=== PATIENT | male | born 1995 | race Caucasian/White ===

== ENCOUNTER 2017-09-10 13:36 | Emergency (ER) | payer SELFPAY ==
--- NOTE | 2017-09-10 14:12 | ER Document Report ---
ED Psych Disorder / Suicide <LEATHA LIAO - Last Filed: 09/11/17 12:00> - General Mode of Arrival: Ambulatory TRAVEL OUTSIDE OF THE [place] IN LAST 30 DAYS: No <MARKELL DESHPANDE - Last Filed: 09/11/17 12:03> - General Chief Complaint: Psych Problem Stated Complaint: PSYCH EVAL/SUICIDAL IDEATION Time Seen by Provider: 09/10/17 14:02 - HPI Notes: 22-year-old male presents with suicidal ideation with consideration stating he was going to hang himself tomorrow. He told us to a counselor today and was sent here with his mother for further psychiatric evaluation. He states this is been long going off and on since age 12 but had not been getting counseling or medications until earlier this summer. This is the first time he had mentioned suicidal ideation. No homicidal ideation. Denies hallucinations or delusions. No prior suicide attempts. Denies alcohol or drug use. He denies any physical complaints. This includes denying fever, chest pain, shortness of breath, URI symptoms, nausea, vomiting, diarrhea. States he has been eating and drinking fairly well. No new pain otherwise. No head trauma. (CHARLEE, JOHN F) - Related Data Allergies/Adverse Reactions: No Known Allergies Allergy (Unverified 09/10/17 13:43) Past Medical History - Social History Smoking Status: Never Smoker Family History: Reviewed & Not Pertinent <MARKELL DESHPANDE - Last Filed: 09/11/17 12:03> Review of Systems - Review of Systems -: Yes All other systems reviewed and negative <MARKELL DESHPANDE - Last Filed: 09/11/17 12:03> Physical Exam <SEBASTIANLEATHA LOCKETT - Last Filed: 09/11/17 12:00> - Vital signs Interpretation: Tachycardic <MARKELL DESHPANDE - Last Filed: 09/11/17 12:03> - Vital signs Vitals: Temp Pulse Resp BP Pulse Ox 98.7 F 121 H 16 149/98 H 98 09/10/17 13:50 09/10/17 13:50 09/10/17 13:50 09/10/17 13:50 09/10/17 13:50 - Notes Notes: GENERAL: VS as per nursing doc. Well-appearing, well-nourished and in no acute distress. HEAD: Atraumatic, normocephalic EYES: Pupils equal round and reactive to light, extraocular movements intact, sclera anicteric, no conjunctival injection or discharge. ENT: Nares patent, oropharynx clear without exudates, moist mucous membranes. NECK: Normal range of motion, supple without lymphadenopathy. LUNGS: Breath sounds clear to auscultation bilaterally and equal. No wheezes rales or rhonchi. HEART: Tachycardic with rhythm without murmurs. Peripheral pulses equal. ABDOMEN: Soft, non-tender. BACK: Normal to inspection EXTREMITIES: Normal appearance without edema. NEUROLOGICAL: Cranial nerves grossly intact. Normal speech. Normal sensory and motor exams. No gross cerebellar abnormalities. PSYCH: Oriented 3. Calm, directable. Brief short mostly yes or no answers but cooperative. Only fair eye contact. No evidence of hallucinations or delusions. No reported homicidal ideation. Normal thought content. Good insight. Speech is appropriate. Reports suicidal ideation by hanging. SKIN: Warm, dry. No lacerations. (MARKELL DESHPANDE) Course - Laboratory Result Diagrams: 09/10/17 14:34 09/10/17 14:34 <LEATHA LIAO - Last Filed: 09/11/17 12:00> - Laboratory Result Diagrams: 09/10/17 14:34 09/10/17 14:34 - EKG Interpretation by Tx EKG shows normal: Sinus rhythm Rate: Tachycardia - Rate 111, probable LVH, QRS of normal duration. No clear ischemia. <MARKELL DESHPANDE - Last Filed: 09/11/17 12:03> - Re-evaluation Re-evalutation: 09/10/17 14:11 Patient will be placed under involuntary commitment as he cannot keep himself safe with suicidal thoughts. (MARKELL DESHPANDE) - Vital Signs Vital signs: Temp Pulse Resp BP Pulse Ox 97.7 F 103 H 18 128/80 H 98 09/11/17 07:17 09/11/17 07:17 09/11/17 07:17 09/11/17 07:17 09/11/17 07:17 - Laboratory Laboratory results interpreted by ny: 09/10/17 09/10/17 14:34 14:34 RBC 6.11 H Sodium 146.2 H Total Protein 8.5 H Discharge <LEATHA LIAO - Last Filed: 09/11/17 12:00> <MARKELL DESHPANDE - Last Filed: 09/11/17 12:03> - Discharge Clinical Impression: Suicidal ideation, Anxiety Condition: Stable Disposition: HOME, SELF-CARE Additional Instructions: DEPRESSION: Your evaluation reveals that you have mental depression. While symptoms may be vague, they often include disturbance of sleep, fatigue, loss of appetite , and general loss of interest in life. While depression may be a side effect of drugs, or a reaction to a major change in your life, many cases have no known cause. If depression is acute, and related to a major loss in your life, you can expect it to clear completely with time. If you have been depressed a long time , are prone to repeated bouts of depression or low mood, or have been thinking of suicide, get help. Depression can be treated with anti-depressant medication and counselling. Long-term depression will often take a few weeks to clear, even with appropriate medication. Follow-up care is important. SUICIDAL IDEATION: Suicidal ideation is a common medical term for thoughts about suicide, which may be as detailed as a formulated plan, without the suicidal act itself. Although most people who undergo suicidal ideation do not commit suicide, some go on to make suicide attempts. The range of suicidal ideation varies greatly from fleeting to detailed planning, role playing, and unsuccessful attempts. While thoughts about suicide are common, most people do not carry out serious actions to commit suicide. Based upon your evaluation and discussion with you, we do not believe you are currently at risk to act upon your thoughts of suicide. You have agreed to return to the Emergency Department, at any time , if you feel inclined to act upon your suicidal thoughts. Anxiety The physician feels that some of your health problems are being caused by anxiety. Anxiety affects your health in many ways. Anxiety alone can cause palpitations, sweats, chest pains, abdominal pains, shortness of breath, and headaches. It contributes to ulcer disease, high blood pressure, irritable bowel syndrome, and has been shown to cause flare-ups of many other diseases. Anxiety is not a simple disorder to treat. If the anxiety is due to recent life stresses, you may simply need time to "work through" the changes. If the anxiety is due to an underlying unhappiness with yourself or due to psychiatric disturbance, professional help will be needed. Your physician can refer you for further help if needed. Anti-anxiety medication is occasionally given if the stress is acute or if you are having trouble sleeping. Chronic or frequent use of these medications is not a good idea because the body becomes reliant on it, preventing you from dealing with life's normal stresses. FOLLOW-UP CARE: You have a scheduled outpatient appointment at [facility] ([facility]) on 09/26/17 at [address] for medication management [address]. Stevens. You should continue with your individual therapy with Jagruti Martin. If you experience worsening or a significant change in your symptoms, notify the physician(s) immediately, utilize mobile crisis or return to the Emergency Department at any time for re-evaluation. Prescriptions: Buspirone HCl [Buspar 10 mg Tablet] 10 mg PO BID #30 tab Citalopram Hydrobromide [Celexa 20 mg Tablet] 20 mg PO DAILY #15 tablet
[2017-09-10 14:54] LABS: ABSOLUTE BASOPHILS # (AUTO) 0.1 10^3/uL (0.0-0.2); ABSOLUTE EOSINOPHILS # (AUTO) 0.2 10^3/uL (0.0-0.6); ABSOLUTE LYMPHOCYTES (AUTO) 1.3 10^3/uL (0.5-4.7); ABSOLUTE MONOCYTES (AUTO) 0.7 10^3/uL (0.1-1.4); BASOPHILS % (AUTO) 0.7 % (0-2); EOSINOPHILS % (AUTO) 2.5 % (0-6); HEMATOCRIT 49.9 % (37.9-51.0); HEMOGLOBIN 16.6 g/dL (13.5-17.0); HGB HCT DIFFERENCE -0.1; LYMPHOCYTES % (AUTO) 16.2 % (13-45); MEAN CORPUSCULAR HEMOGLOBIN 27.1 pg (27.0-33.4); MEAN CORPUSCULAR HGB CONC 33.2 g/dL (32.0-36.0); MEAN CORPUSCULAR VOLUME 82 fl (80-97); RED BLOOD COUNT 6.11 10^6/uL (4.35-5.55); SEGMENTED NEUTROPHILS % (AUTO) 72.6 % (42-78); WHITE BLOOD COUNT 8.3 10^3/uL (4.0-10.5)
[2017-09-10 15:18] LABS: ALANINE AMINOTRANSFERASE 32 U/L (21-72); ALBUMIN 4.9 g/dL (3.5-5.0); ALKALINE PHOSPHATASE 123 U/L (38-126); ANION GAP 16 (5-19); ASPARTATE AMINO TRANSFERASE 21 U/L (17-59); BILIRUBIN,DIRECT 0.3 mg/dL (0.0-0.4); BILIRUBIN,TOTAL 0.6 mg/dL (0.2-1.3); BLOOD UREA NITROGEN 14 mg/dL (7-20); CALCIUM 9.8 mg/dL (8.4-10.2); CARBON DIOXIDE 25 mmol/L (22-30); CHLORIDE 105 mmol/L (98-107); CREATININE RESULT 0.88 mg/dL (0.52-1.25); GLUCOSE 103 mg/dL (75-110); POTASSIUM 3.9 mmol/L (3.6-5.0); SODIUM 146.2 mmol/L (137-145); TOTAL PROTEIN 8.5 g/dL (6.3-8.2)
[2017-09-10 15:19] LABS: ALCOHOL < 10 mg/dL (NONE DETECTED)
[2017-09-10] MEDS ORDERED: CITALOPRAM HYDROBROMIDE 20 MG TABLET PO SCH (17:00)
[2017-09-10] MEDS: BUSPIRONE HCL 10 MG TABLET PO SCH (18:09)
[2017-09-10 18:35] LABS: APPEARANCE,URINE CLEAR; BILIRUBIN,URINE NEGATIVE (NEGATIVE); GLUCOSE, URINE NEGATIVE (NEGATIVE); KETONES,URINE NEGATIVE (NEGATIVE); LEUKOCYTE ESTERASE,URINE NEGATIVE (NEGATIVE); NITRITE,URINE NEGATIVE (NEGATIVE); PROTEIN,URINE NEGATIVE (NEGATIVE); URINE SPECIFIC GRAVITY 1.008; UROBILINOGEN,URINE NEGATIVE mg/dL (<2.0)
[2017-09-10 18:52] LABS: URINE BARBITURATES SCREEN NEGATIVE; URINE METHADONE SCREEN NEGATIVE; URINE OPIATES LOW NEGATIVE; URINE PHENCYCLIDINE SCREEN NEGATIVE
--- NOTE | 2017-09-10 23:12 | EKG REPORT ---
SEVERITY:- ABNORMAL ECG - SINUS TACHYCARDIA ARPAN, CONSIDER BIATRIAL ABNORMALITIES PROBABLE LEFT VENTRICULAR HYPERTROPHY : Confirmed by: Jaylen Hu 10-Sep-2017 23:10:45
--- NOTE | 2017-09-11 09:39 | ER Document Report ---
Doctor's Note Notes: 09/11/17 09:39 Patient states he has had an uneventful night. He is awaiting his morning BuSpar and Celexa. Psychiatry has yet to evaluate him according to patient and mother are present. He has no complaints. Lungs are clear, heart regular rate and rhythm. Tachycardia from yesterday has resolved.
[2017-09-11] MEDS: BUSPIRONE HCL 10 MG TABLET PO SCH (10:18)
[2017-09-11 12:18] VITALS: BP 133/82
--- NOTE | 2017-09-12 05:23 | PSYCHOLOGICAL NOTE ---
Psych Note - Psych Note Psych Note: Patient is a 22 year old male who presented to the ED today via mother after coming from his outpatient therapist's office where he expressed SI with plan. Patient stated he had a no harm agreement with his therapist from last week and today he informed her he was planning on committing SI tomorrow. This clinician had to ask what his plan was, he took a minute then said I thought I would hang myself. With further questioning he stated he thought about using a belt and maybe putting it over ceiling fan but had not taken any action or set up plan. He stated he has had SI (thoughts) on and of since age 12. He denied previous attempts and commented "until recently I did not have serious plan." He stated he planned his attempt a week ago. He denied previous MH hospitalizations and has not been on medications. He denied current SI. Patient was alert and oriented to person, place, time and situation. Mood was depressed with flat affect. He denied current SI/HI, admitted to having thoughts since age 12 without any action or plan until a week ago, stated the SI comes and goes, and had been honest with therapist. He did not appear to be responding to internal stimuli AEB far eye contact, answering questions appropriately when addressed and staying on topic. Thought processes were linear. Conversational speech was WNL for rate, tone and prosody. Intellectual abilities are estimated to be average. Insight, judgment and impulse control are fair to poor AEB SI with plan however being honest with therapist. Jagruti Martin ([phone]) contacted [facility] team to inform she was sending a client over. She stated last week patient agreed to a no harm agreement however today came in with SI and plan. She said he held off on taking action because he has the appointment with her today. She stated she contacted [facility] (spoke to Bonnie) who said they have discharges today. Patient's mother, Elsa ([phone]), at bedside. She identified patient has social anxiety and has been untreated until 4-5 months ago when he started therapy with Jagruti Martin. She stated patient is isolated and does not like to leave the home. She noted he does not have a cell phone and does not want one. She noted he does play video games online which is his main socialization. She stated patient's therapist has had him complete 2 applications for work for which he has had interviews for. She stated the therapist also linked patient to [employer] where he will begin seeing a male therapist for disability work training. 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 She reported a maternal uncle attempted suicide at age 22 but was unsuccessful and maternal grandmother suffered from depression (used natural remedies) and dementia. Diagnosis: 300.23 (F40.10) Social Anxiety Disorder (social phobia) Impression/Plan: Recommendation to hold patient overnight. He does not meet [place]C IVC criteria. He denied current SI/HI, has a history of thoughts but no attempts, and was honest with therapist. There was no observed psychosis. A medication regimen has been started and want to ensure he tolerates the medication well. Will reassess in the morning and if medications tolerated well with do a plan of care for discharge (includes increased monitoring by mother, mother to have control over medications and administration, patient not having access to any belts, and follow up appointment for medication management). Consulted with Dr. Taylor regarding the management and care of patient. ED Physician in agreement with recommendation.
--- NOTE | 2017-09-12 05:35 | PSYCHOLOGICAL NOTE ---
Psych Note - Psych Note Psych Note: Patient is a 22 year old male who was held overnight voluntarily due to starting a medication regimen in order to address anxiety and SI. He stated he did not get much sleep last night due to his anxiety. He noted having passive SI since his mother left and again related to anxiety. He denied SI during evaluation. He was sitting in bed and somewhat fidgety. He confirmed that his SI centers around anxiety. He had a brighter affect and was processing his anxiety and SI. Later afternoon patient's mother and brother were at bedside. Patient and brother have decided to allocate a certain day to hang out. 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 All of this if future and goal oriented thinking. Diagnosis: 300.23 (F40.10) Social Anxiety Disorder (social phobia) Impression/Plan: Patient is psychiatrically cleared. Recommendation to discharge patient home with mother. Patient to continue therapy with Jagruti Martin. He was scheduled for outpatient medication [place] [facility] [place] 0800. Plan of care reiterated: Mother to increase monitoring which means patient not shutting doors when in a room, physical check ins, mother to have control over medications and administration, moving video game area from secluded place above the garage to main living area, and mother removing all belts). Suggested patient volunteer at animal alf with mother as it gives him something to do with animals versus people and it will keep his mind busy. Also suggested patient and family playing board or other card games together for interaction practice. Patient provided with outpatient resource sheet which documented appointment date and time, as well as highlighted both MCM numbers. Mother provided with separate outpatient resource sheet with both MCM numbers highlighted. Coordinated care with Jagruti Martin. Consulted with Dr. Taylor regarding the management and care of patient. ED Physician in agreement with recommendation.
== END 2017-09-11 12:18 | disposition home or self-care (01) ==
LOC: ER 13:36
DX: R45.851 Suicidal ideations (principal); F41.9 Anxiety disorder, unspecified; F40.10 Social phobia, unspecified
CPT/HCPCS: 36415; 80053; 80307; 81001; 85025; 93005; 93010; 99285

== ENCOUNTER → 2018-03-18 | Outpatient (CLI) | payer OTHER ==
[2018-03-18 15:36] LABS: ABSOLUTE MONOCYTES (AUTO) 0.6 10^3/uL (0.1-1.4); ABSOLUTE NEUT (AUTO) 4.7 10^3/uL (1.7-8.2); BASOPHILS % (AUTO) 0.2 % (0-2); HEMATOCRIT 44.9 % (37.9-51.0); HEMOGLOBIN 15.1 g/dL (13.5-17.0); LYMPHOCYTES % (AUTO) 27.7 % (13-45); MEAN CORPUSCULAR HEMOGLOBIN 27.9 pg (27.0-33.4); MEAN CORPUSCULAR HGB CONC 33.7 g/dL (32.0-36.0); MEAN CORPUSCULAR VOLUME 83 fl (80-97); MONOCYTES % (AUTO) 7.6 % (3-13); PLATELET COUNT 283 10^3/uL (150-450); RED BLOOD COUNT 5.42 10^6/uL (4.35-5.55); RED CELL DISTRIBUTION WIDTH 13.4 % (11.5-14.0); SEGMENTED NEUTROPHILS % (AUTO) 64.5 % (42-78); TOTAL CELLS COUNTED % (AUTO) 100 %; WHITE BLOOD COUNT 7.3 10^3/uL (4.0-10.5)
[2018-03-18 15:58] LABS: ALANINE AMINOTRANSFERASE 68 U/L (21-72); ALBUMIN 4.5 g/dL (3.5-5.0); ALKALINE PHOSPHATASE 120 U/L (38-126); ANION GAP 14 (5-19); ASPARTATE AMINO TRANSFERASE 39 U/L (17-59); BILIRUBIN,DIRECT 0.3 mg/dL (0.0-0.4); BILIRUBIN,TOTAL 0.6 mg/dL (0.2-1.3); BLOOD UREA NITROGEN 13 mg/dL (7-20); CALCIUM 9.3 mg/dL (8.4-10.2); CARBON DIOXIDE 25 mmol/L (22-30); CHLORIDE 105 mmol/L (98-107); CHOLESTEROL 183.08 mg/dL (0-200); GLUCOSE 80 mg/dL (75-110); POTASSIUM 4.3 mmol/L (3.6-5.0); SODIUM 143.8 mmol/L (137-145); TOTAL PROTEIN 8.1 g/dL (6.3-8.2); TRIGLYCERIDES 159 mg/dL (<150)
[2018-03-18 16:09] LABS: DIRECT LDL 119 mg/dL (<100)
[2018-03-18 16:10] LABS: VLDL CHOLESTEROL 31.8 mg/dL (10-31)
== END ==
LOC: OD 14:20
PROVIDERS: ATTEND Psychiatry & Neurology Psychiatry
DX: F34.1 Dysthymic disorder (principal); F40.00 Agoraphobia, unspecified; F41.1 Generalized anxiety disorder
CPT/HCPCS: 36415; 80053; 80061; 84443; 85025